=== PATIENT | female | born 1990 | race Caucasian/White ===

== ENCOUNTER 2017-08-05 00:14 | Emergency (ER) | payer OTHER ==
[~2017-08-05] VITALS: Ht 165.1 cm; Wt 108.9 kg
[~2017-08-05 00:14] MED LIST: AMBIEN5 MG PO; BIRTH CONTROL1 EAC1 PO; CLINDAMYCIN150 MG PO; NORCO 325 MG-51 TAB PO; NORCO 5-325 TA1 EACH PO; TIZANIDINE HCL4 MG PO; ZOLOFT50 MG PO
[2017-08-05] MEDS ORDERED: Motrin,Rufen800 MG PO (01:35)
== END 2017-08-05 02:13 | disposition home or self-care (01) ==
LOC: ED 00:14
DX: S90.31XA Contusion of right foot, initial encounter (principal); F17.200 Nicotine dependence, unspecified, uncomplicated; Z98.890 Other specified postprocedural states; Z79.899 Other long term (current) drug therapy; W10.8XXA Fall (on) (from) other stairs and steps, initial encounter; Y93.89 Activity, other specified; Y92.89 Other specified places as the place of occurrence of the external cause; Y99.9 Unspecified external cause status

== ENCOUNTER 2018-03-12 21:17 | Emergency (ER) | payer OTHER ==
[~2018-03-12] VITALS: Ht 165.1 cm; Wt 108.9 kg
[~2018-03-12 21:17] MED LIST changes: +Motrin,Rufen800 MG PO
[2018-03-12 21:38] LABS: BILIRUBIN NEGATIVE (NEGATIVE); BLOOD 3+ (NEGATIVE); CLARITY SL CLOUDY (CLEAR); COLOR YELLOW (YELLOW); GLUCOSE NEGATIVE (NEGATIVE); KETONE TRACE (NEGATIVE); LEUKO ESTERASE TRACE (NEGATIVE); NITRITE NEGATIVE (NEGATIVE); SPECIFIC GRAVITY 1.025 (1.005-1.030)
[2018-03-12 21:44] LABS: BACTERIA 1+; MUCOUS 1+
[2018-03-12 21:45] LABS: RBC 51-100 rbc/hpf (0-2)
[2018-03-12] MEDS ORDERED: SEPTDS PO (23:57)
[2018-03-12] MEDS ORDERED: PYRIDIUM200 M1 PO (23:57)
== END 2018-03-13 00:23 | disposition home or self-care (01) ==
LOC: ED 21:17
PROVIDERS: Nurse Practitioner Family
DX: N39.0 Urinary tract infection, site not specified (principal); R31.9 Hematuria, unspecified; F17.200 Nicotine dependence, unspecified, uncomplicated; Z98.890 Other specified postprocedural states; Z79.899 Other long term (current) drug therapy

== ENCOUNTER 2021-01-20 17:15 | Emergency (ER) | payer OTHER ==
[~2021-01-20] VITALS: Ht 165.1 cm; Wt 108.9 kg
[~2021-01-20 17:15] MED LIST changes: +PYRIDIUM200 M1 PO; +SEPTDS PO
[2021-01-20] MEDS ORDERED: IBUPROFEN600 MG PO (19:09)
== END 2021-01-20 19:10 | disposition home or self-care (01) ==
LOC: ED 17:15
DX: S63.502A Unspecified sprain of left wrist, initial encounter (principal); J45.909 Unspecified asthma, uncomplicated; F41.9 Anxiety disorder, unspecified; Z79.2 Long term (current) use of antibiotics; Z79.899 Other long term (current) drug therapy; Z98.890 Other specified postprocedural states; W01.0XXA Fall on same level from slipping, tripping and stumbling without subsequent striking against object, initial encounter; Y93.89 Activity, other specified; Y92.096 Garden or yard of other non-institutional residence as the place of occurrence of the external cause; Y99.8 Other external cause status

== ENCOUNTER 2021-02-08 09:40 | Emergency (ER) | payer OTHER ==
[~2021-02-08 09:40] MED LIST changes: +IBUPROFEN600 MG PO
[2021-02-08 10:22] LABS: BASO % 0.4 % (0.0-1.0); EOS # 0.1 10*3/uL (0.0-0.4); EOS % 1.8 % (1.0-4.0); HEMATOCRIT 28.6 % (37.0-47.0); LYMPH # 0.6 10*3/uL (1.3-4.4); LYMPH % 12.7 % (27.0-41.0); MEAN CELL VOLUME 67.8 fl (81.0-99.0); MEAN CORPUSCULAR HGB 16.8 pg (27.0-31.0); MEAN CORPUSCULAR HGB CONC 24.8 g/dl (33.0-37.0); MONO # 0.3 10*3/uL (0.1-1.0); NEUT % 79.7 % (47.0-73.0); RED BLOOD COUNT 4.22 10*6/uL (4.10-5.10); RED CELL DISTRI WIDTH 22.3 % (0-14.5)
[2021-02-08 10:31] LABS: ACT PARTIAL THROMBO TIME 23.4 SECONDS (20.0-32.1); INTERNATIONAL NORM RATIO 0.9 (2.0-3.5)
[2021-02-08 10:35] LABS: ALBUMIN 3.3 gm/dl (3.1-4.5); ALKALINE PHOSPHATASE 94 U/L (45-117); B-hCG (QUALITATIVE) NEGATIVE (NEGATIVE); BUN 11 mg/dl (7-24); CHLORIDE 106 mmol/L (98-107); CREATININE 0.68 mg/dL (0.55-1.02); POTASSIUM 3.4 mmol/L (3.5-5.1); SGOT/AST 16 IU/L (3-35); SGPT/ALT 28 U/L (12-78); SODIUM 137 mmol/L (136-145); TOTAL PROTEIN 7.3 gm/dL (6.4-8.2)
[2021-02-08 10:40] LABS: ETHYL ALCOHOL < 3.0 mg/dl (<3); TROPONIN I < 0.015 ng/ml (<0.045)
[2021-02-08 10:46] LABS: PLATELET COUNT AUTOMATED 172 10*3/uL (130-400)
[2021-02-08 11:58] LABS: BILIRUBIN Negative (Negative); BLOOD 1+ (Negative); CLARITY Turbid (Clear); COLOR Yellow (Yellow); GLUCOSE Negative (Negative); KETONE Trace (Negative); LEUKO ESTERASE 3+ (Negative); NITRITE Negative (Negative); SPECIFIC GRAVITY 1.025 (1.001-1.030); UROBILINOGEN 0.2 E.U./dl (0.0-1.0)
[2021-02-08 12:06] LABS: BACTERIA 1+; EPITHELIAL CELLS 16-20; WBC TNTC wbc/hpf (0-5)
[2021-02-08 12:10] LABS: URINE AMPHETAMINES < 1000 (1000ng/ml); URINE BARBITURATES < 200 (200ng/ml); URINE BENZODIAZEPINES < 200 (200ng/ml); URINE COCAINE < 300 (300ng/ml); URINE METHADONE < 300 (300ng/ml); URINE OPIATES < 300 (300ng/ml)
[2021-02-08 12:14] LABS: URINE CANNABINOIDS (THC) < 50 (50ng/ml)
[2021-02-08 12:15] LABS: URINE PHENCYCLIDINE < 25 (25ng/ml)
[2021-02-08] MEDS ORDERED: CIPRO500 MG PO (15:13)
[2021-02-08] MEDS ORDERED: FLAGYL500 MG PO (15:13)
== END 2021-02-08 14:59 | disposition home or self-care (01) ==
LOC: ED 09:40
PROVIDERS: Internal Medicine
DX: E86.0 Dehydration (principal); Z79.899 Other long term (current) drug therapy; Z98.890 Other specified postprocedural states

== ENCOUNTER 2021-02-17 10:03 | Emergency (ER) | payer BC ==
[~2021-02-17] VITALS: Ht 165.1 cm; Wt 99.8 kg
[~2021-02-17 10:03] MED LIST changes: +CIPRO500 MG PO; +FLAGYL500 MG PO
[2021-02-17] MEDS ORDERED: NAPROSYN500 MG PO (10:38)
[2021-02-17] MEDS ORDERED: TYLENOL325 M1 PO (10:38)
== END 2021-02-17 12:48 | disposition home or self-care (01) ==
LOC: ED 10:03
DX: M79.644 Pain in right finger(s) (principal); M79.674 Pain in right toe(s); E66.9 Obesity, unspecified; Z98.890 Other specified postprocedural states

== ENCOUNTER 2021-06-02 14:58 | Emergency (ER) | payer OTHER ==
[~2021-06-02] VITALS: Ht 165.1 cm; Wt 99.8 kg
[~2021-06-02 14:58] MED LIST changes: +NAPROSYN500 MG PO; +TYLENOL325 M1 PO
[2021-06-02] MEDS ORDERED: PREDNISONE50 MG PO (15:49)
[2021-06-02] MEDS ORDERED: VIBRAMYCIN100 MG PO (15:49)
== END 2021-06-02 16:00 | disposition home or self-care (01) ==
LOC: ED 14:58
DX: J45.901 Unspecified asthma with (acute) exacerbation (principal); Z20.822 Contact with and (suspected) exposure to COVID-19; F17.200 Nicotine dependence, unspecified, uncomplicated; Z88.1 Allergy status to other antibiotic agents; Z88.4 Allergy status to anesthetic agent; Z79.899 Other long term (current) drug therapy; Z79.2 Long term (current) use of antibiotics; Z98.890 Other specified postprocedural states

== ENCOUNTER 2021-08-05 02:36 | Emergency (ER) | payer OTHER ==
[~2021-08-05] VITALS: Ht 165.1 cm; Wt 99.8 kg
[~2021-08-05 02:36] MED LIST changes: +PREDNISONE50 MG PO; +VIBRAMYCIN100 MG PO
[2021-08-05 04:11] LABS: HEMATOCRIT 40.5 % (37.0-47.0); MEAN CELL VOLUME 83.2 fl (81.0-99.0); MEAN CORPUSCULAR HGB 27.9 pg (27.0-31.0); MEAN CORPUSCULAR HGB CONC 33.6 g/dl (33.0-37.0); MEAN PLATELET VOLUME 11.1 fl (9.6-12.3); PLATELET COUNT AUTOMATED 167 10*3/uL (130-400); RED BLOOD COUNT 4.87 10*6/uL (4.10-5.10); RED CELL DISTRI WIDTH 16.7 % (0-14.5); WHITE BLOOD COUNT 9.3 10*3/uL (4.8-10.8)
[2021-08-05 04:24] LABS: ALBUMIN 3.4 gm/dl (3.1-4.5); ALKALINE PHOSPHATASE 91 U/L (45-117); BUN 11 mg/dl (7-24); CHLORIDE 104 mmol/L (98-107); CREATININE 0.62 mg/dL (0.55-1.02); POTASSIUM 3.9 mmol/L (3.5-5.1); SGOT/AST 11 IU/L (3-35); SGPT/ALT 35 U/L (12-78); SODIUM 137 mmol/L (136-145); TOTAL PROTEIN 7.3 gm/dL (6.4-8.2)
[2021-08-05 04:27] LABS: PLATELET SUFFICIENCY NORMAL (NORMAL); TOTAL CELLS COUNTED 100 #CELLS
[2021-08-05] MEDS ORDERED: PREDNISONE10 M1 PO (06:38)
[2021-08-05] MEDS ORDERED: VIBRA-TAB100 MG PO (06:38)
== END 2021-08-05 06:43 | disposition home or self-care (01) ==
LOC: ED 02:36
PROVIDERS: Emergency Medicine
DX: J45.909 Unspecified asthma, uncomplicated (principal); F17.200 Nicotine dependence, unspecified, uncomplicated; Z88.1 Allergy status to other antibiotic agents; Z79.899 Other long term (current) drug therapy

== ENCOUNTER 2021-08-10 11:48 | Emergency (ER) | payer OTHER ==
[~2021-08-10] VITALS: Ht 165.1 cm; Wt 99.8 kg
[~2021-08-10 11:48] MED LIST changes: +PREDNISONE10 M1 PO; +VIBRA-TAB100 MG PO
== END 2021-08-10 14:30 | disposition left against medical advice (07) ==
LOC: ED 11:48
DX: S51.852A Open bite of left forearm, initial encounter (principal); Z53.21 Procedure and treatment not carried out due to patient leaving prior to being seen by health care provider; W54.0XXA Bitten by dog, initial encounter; Y93.89 Activity, other specified; Y92.89 Other specified places as the place of occurrence of the external cause; Y99.8 Other external cause status

== ENCOUNTER 2021-09-23 09:19 | Emergency (ER) | payer SELFPAY ==
[~2021-09-23] VITALS: Wt 113.4 kg
== END 2021-09-23 12:31 | disposition home or self-care (01) ==
LOC: ED 09:19
DX: M25.572 Pain in left ankle and joints of left foot (principal); Z88.1 Allergy status to other antibiotic agents; Z88.8 Allergy status to other drugs, medicaments and biological substances; Z79.899 Other long term (current) drug therapy